=== PATIENT | female | born 1995 | race Caucasian/White ===

== ENCOUNTER 2017-08-02 16:26 | Emergency (ER) | payer OTHER ==
[~2017-08-02] VITALS: Ht 162.6 cm; Wt 52.2 kg
== END 2017-08-02 22:31 | disposition home or self-care (01) ==
LOC: ER 16:26
DX: O21.0 Mild hyperemesis gravidarum (principal); Z34.01 Encounter for supervision of normal first pregnancy, first trimester

== ENCOUNTER 2017-09-23 16:32 | Emergency (ER) | payer OTHER ==
[~2017-09-23] VITALS: Ht 162.6 cm; Wt 47.6 kg
== END 2017-09-23 20:47 | disposition home or self-care (01) ==
LOC: ER 16:32
DX: O26.892 Other specified pregnancy related conditions, second trimester (principal); R10.2 Pelvic and perineal pain; Z34.02 Encounter for supervision of normal first pregnancy, second trimester

== ENCOUNTER 2018-02-02 12:27 | Outpatient (CLI) | payer OTHER ==
[2018-02-02] MEDS ORDERED: PRENATAL FORMU1 EAC1 PO (18:03)
== END 2018-02-03 10:52 | disposition home or self-care (01) ==
LOC: OBS/DEL 12:27
DX: O46.8X3 Other antepartum hemorrhage, third trimester (principal); Z34.03 Encounter for supervision of normal first pregnancy, third trimester; O47.03 False labor before 37 completed weeks of gestation, third trimester

== ENCOUNTER 2018-02-04 17:56 | Inpatient (IN) | payer OTHER ==
[~2018-02-04] VITALS: Ht 162.6 cm; Wt 58.1 kg
[~2018-02-04 17:56] MED LIST: PRENATAL FORMU1 EAC1 PO
== END 2018-02-10 09:28 | disposition home or self-care, planned readmission (81) | DRG 833 ==
LOC: OBS/DEL 17:56 → LDR 18:01 → OBS/DEL 20:00 → LDR 02-05 16:22 → OB/GYN 02-05 17:47
PROC: BY4FZZZ Ultrasonography of Third Trimester, Single Fetus (ICD-10-PCS; principal; 2018-02-05)
PROC: 4A1HXCZ Monitoring of Products of Conception, Cardiac Rate, External Approach (ICD-10-PCS; 2018-02-05)
DX: O47.03 False labor before 37 completed weeks of gestation, third trimester (principal)

== ENCOUNTER 2018-03-03 07:17 | Inpatient (IN) | payer OTHER ==
[~2018-03-03] VITALS: Ht 162.6 cm; Wt 59.9 kg
== END 2018-03-05 13:40 | disposition home or self-care (01) | DRG 807 ==
LOC: OB/GYN 07:17 → LDR 07:17 → OB/GYN 15:43
PROC: 10E0XZZ Delivery of Products of Conception, External Approach (ICD-10-PCS; principal; 2018-03-03)
PROC: 3E033VJ Introduction of Other Hormone into Peripheral Vein, Percutaneous Approach (ICD-10-PCS; 2018-03-03)
PROC: 4A1HXCZ Monitoring of Products of Conception, Cardiac Rate, External Approach (ICD-10-PCS; 2018-03-03)
PROC: 4A033R1 Measurement of Arterial Saturation, Peripheral, Percutaneous Approach (ICD-10-PCS; 2018-03-03)
DX: O80 Encounter for full-term uncomplicated delivery (principal); Z37.0 Single live birth; Z3A.38 38 weeks gestation of pregnancy

== ENCOUNTER 2021-06-06 11:52 | Emergency (ER) | payer OTHER ==
[~2021-06-06] VITALS: Ht 162.6 cm; Wt 49.0 kg
== END 2021-06-06 19:43 | disposition home or self-care (01) ==
LOC: ER 11:52
DX: O26.891 Other specified pregnancy related conditions, first trimester (principal); Z3A.14 14 weeks gestation of pregnancy; R10.2 Pelvic and perineal pain

== ENCOUNTER 2021-08-18 07:59 | Outpatient (CLI) | payer OTHER | END 2021-08-18 09:15 | disposition home or self-care (01) | LOC: PRENATAL 07:59 | PROVIDERS: ATTEND Obstetrics & Gynecology Maternal & Fetal Medicine | DX: O35.0XX0 Maternal care for (suspected) central nervous system malformation in fetus, not applicable or unspecified (principal); O35.3XX0 Maternal care for (suspected) damage to fetus from viral disease in mother, not applicable or unspecified; Z3A.24 24 weeks gestation of pregnancy; Z91.013 Allergy to seafood ==

== ENCOUNTER 2021-10-19 17:21 | Inpatient (IN) | payer OTHER ==
[~2021-10-19] VITALS: Ht 162.6 cm; Wt 60.8 kg
[2021-10-19] MEDS ORDERED: ZOFRAN8 MG PO (18:23)
== END 2021-10-26 09:48 | disposition home or self-care (01) | DRG 833 ==
LOC: OBS/DEL 17:21 → LDR 10-20 09:26 → OB/GYN 10-20 20:38
PROVIDERS: ADMIT Obstetrics & Gynecology; ATTEND Obstetrics & Gynecology
PROC: BY4FZZZ Ultrasonography of Third Trimester, Single Fetus (ICD-10-PCS; 2021-10-19)
PROC: BY4FZZZ Ultrasonography of Third Trimester, Single Fetus (ICD-10-PCS; 2021-10-19)
PROC: 4A1HXCZ Monitoring of Products of Conception, Cardiac Rate, External Approach (ICD-10-PCS; principal; 2021-10-20)
DX: O60.03 Preterm labor without delivery, third trimester (principal); Z3A.34 34 weeks gestation of pregnancy; Z20.822 Contact with and (suspected) exposure to COVID-19

== ENCOUNTER 2021-11-13 05:34 | Inpatient (IN) | payer OTHER ==
[~2021-11-13] VITALS: Ht 162.6 cm; Wt 61.7 kg
[~2021-11-13 05:34] MED LIST changes: +ZOFRAN8 MG PO
[2021-11-13] MEDS ORDERED: ZOFRAN8 MG (07:16)
== END 2021-11-15 12:52 | disposition home or self-care (01) | DRG 807 ==
LOC: OB/GYN 05:34 → LDR 05:34 → OB/GYN 16:23
PROVIDERS: ADMIT Obstetrics & Gynecology; ATTEND Obstetrics & Gynecology
PROC: 10E0XZZ Delivery of Products of Conception, External Approach (ICD-10-PCS; principal; 2021-11-13)
PROC: 0HQ9XZZ Repair Perineum Skin, External Approach (ICD-10-PCS; 2021-11-13)
PROC: 4A1HXCZ Monitoring of Products of Conception, Cardiac Rate, External Approach (ICD-10-PCS; 2021-11-13)
DX: O70.1 Second degree perineal laceration during delivery (principal); Z3A.37 37 weeks gestation of pregnancy; Z37.0 Single live birth; Z20.822 Contact with and (suspected) exposure to COVID-19